=== PATIENT | male | born 1995 | race Hispanic/Latino ===

== ENCOUNTER 2021-12-14 18:50 | Emergency (ER) | payer SELFPAY ==
[2021-12-14 18:56] VITALS: BP 112/75
[2021-12-14 19:00] VITALS: BP 130/50
[2021-12-14] MEDS ORDERED: NAPROXEN500 MG PO (19:27)
[2021-12-14 19:30] VITALS: BP 122/67
[2021-12-14 19:39] VITALS: BP 120/78
== END 2021-12-14 19:39 | disposition home or self-care (01) | DRG 605 ==
LOC: ED 18:50
DX: S51.811A Laceration without foreign body of right forearm, initial encounter (principal); W55.12XA Struck by horse, initial encounter